=== PATIENT | female | born 2000 | race Hispanic/Latino ===

== ENCOUNTER 2018-12-29 07:25 | Emergency (ER) | payer MEDICAID, OTHER ==
[2018-12-29] MEDS ORDERED: IBUPROFEN 600 MG TABLET ONE (07:44)
[2018-12-29] MEDS ORDERED: OCTYL 2-CYANOACRYLATE 1 EACH TP ONE (08:49)
== END 2018-12-29 09:26 | disposition home or self-care (01) ==
LOC: EDH 07:25
DX: S82.832A Other fracture of upper and lower end of left fibula, initial encounter for closed fracture (principal); Z72.0 Tobacco use; W10.8XXA Fall (on) (from) other stairs and steps, initial encounter; Y93.89 Activity, other specified; Y92.89 Other specified places as the place of occurrence of the external cause; Y99.8 Other external cause status
CPT/HCPCS: 29515; 73610

== ENCOUNTER 2019-04-04 17:58 | Emergency (ER) | payer SELFPAY ==
[2019-04-04] MEDS ORDERED: ACETAMINOPHEN EXTRA STRENGTH 500 MG TABLET ONE (18:48)
[2019-04-04] MEDS ORDERED: LIDOCAINE HCL 1% 20 ML VIAL ONE (19:09)
[2019-04-04] MEDS ORDERED: TETANUS/DIPHTHERIA TOXOID [ADULT] 0.5 ML VIAL IM ONE (19:37)
== END 2019-04-04 19:49 | disposition home or self-care (01) ==
LOC: EDH 17:58
DX: S61.011A Laceration without foreign body of right thumb without damage to nail, initial encounter (principal); Z72.0 Tobacco use; K80.80 Other cholelithiasis without obstruction; X58.XXXA Exposure to other specified factors, initial encounter; Y93.89 Activity, other specified; Y92.090 Kitchen in other non-institutional residence as the place of occurrence of the external cause; Y99.8 Other external cause status
CPT/HCPCS: 12001; 73140; 90714

== ENCOUNTER 2019-09-24 20:09 | Emergency (ER) | payer SELFPAY ==
[2019-09-24 20:58] LABS: APPEARANCE,URINE CLOUDY (CLEAR); BILIRUBIN,URINE SMALL (NEGATIVE); COLOR,URINE YELLOW (YELLOW); GLUCOSE, URINE (UA) NEGATIVE (NEGATIVE); KETONES,URINE 15 mg/dL (NEGATIVE); LEUKOCYTE ESTERASE ,URINE SMALL (NEGATIVE); NITRATE,URINE NEGATIVE (NEGATIVE); OCCULT BLOOD,URINE NEGATIVE (NEGATIVE); PH,URINE 7.5 (5.0-8.0); PROTEIN,URINE TRACE mg/dL (NEGATIVE)
[2019-09-24 21:02] LABS: HCG,QUAL RESULT NEGATIVE (NEGATIVE)
[2019-09-24 21:07] LABS: AMPHET/METH SCREEN,URINE POSITIVE (NEGATIVE); BARBITURATE SCREEN, URINE NEGATIVE (NEGATIVE); BENZODIAZEPINES SCREEN,URINE POSITIVE (NEGATIVE); CANNABINOID SCREEN,URINE POSITIVE (NEGATIVE); COCAINE SCREEN,URINE POSITIVE (NEGATIVE); OPIATE SCREEN,URINE NEGATIVE (NEGATIVE); PHENCYCLIDINE SCREEN,URINE NEGATIVE (NEGATIVE)
[2019-09-24 21:15] LABS: BACTERIA,URINE Few /HPF (None Seen); MUCUS,URINE Many LPF (None Seen); SQUAMOUS EPITHELIAL CELL,UR Moderate /HPF (0-2)
== END 2019-09-24 22:58 | disposition left against medical advice (07) ==
LOC: EDH 20:09
DX: R56.9 Unspecified convulsions (principal); F19.10 Other psychoactive substance abuse, uncomplicated
CPT/HCPCS: 36415; 70450; 80305; 81001; 81025